=== PATIENT | female | born 1955 | race Caucasian/White ===

== ENCOUNTER 2020-04-22 19:20 | Emergency (ER) | payer OTHER ==
[~2020-04-22 19:20] MED LIST: AMBIEN5 MG PO; AZTREONAM1 GM IV; CENTURY ULTIMA1 EAC2 PO; CERTAGEN1 EACH PO; EUTHYROX137 MCG PO; FERROUS SULFAT325 M2 PO; HABITROL21 MG TOP; HEPARIN 3010 UNIT/1 IV; K-DUR20 MEQ PO; LAXATIVE OF CHOICE; MERREM1 GM IV; METRONIDAZOLE500 MG PO; MICRO-K10 MEQ PO; MIRALAX17 GM PO; MUCINEX600 MG PO; ONDANSETRON ODT4 MG PO; OS-CAL+D500 MG PO; OXYCODONE-ACET1 EAC1 PO; PERCOCET 5-3251 EACH PO; PRILOSEC20 MG PO; SYMBICORT 16010.2 GM INH; SYNTHROID150 MCG PO; ULTRAM50 MG PO; VANCO 1.51.5 GM/500 IV; VENTOLIN HFA IN18 GM INH; VOLTAREN **OUT75 MG PO; XANAX0.5 MG PO; XARELTO10 MG PO; [UNRECOGNIZED DRUG - REMARK] XX; [UNRECOGNIZED DRUG - REMARK] XX; [UNRECOGNIZED DRUG - SUPPLY] NEB; [UNRECOGNIZED DRUG - SUPPLY] PO
[2020-04-22 20:39] LABS: EOSINOPHIL 10.4 % (0-5); HCT 33.3 % (37.0-47.0); HGB 10.3 g/dl (12.5-16.0); LYMPHOCYTE 17.8 % (15-48); MCH 28.9 pg (25.0-31.0); MCHC 30.9 g/dL (32.0-36.0); MCV 93.5 fL (78.0-100.0); MONOCYTE 12.9 % (0-12); MPV 9.4 fL (6.0-9.5); NEUTROPHIL 56.4 % (41-80); NRBC 0; PLT 370 K/uL (150-400); RBC 3.56 M/uL (4.20-5.40); RDW 17.8 % (11.5-14.0); WBC 5.5 K/uL (4.0-10.5)
[2020-04-22 20:52] LABS: BILIRUBIN NEGATIVE (NEGATIVE); BLOOD NEGATIVE Ery/uL (NEGATIVE); CLARITY HAZY (CLEAR); COLOR YELLOW (YELLOW); GLUCOSE (U) NORMAL (NORMAL); LEUKOCYTES NEGATIVE Leu/uL (NEGATIVE); NITRITE NEGATIVE (NEGATIVE); PROTEIN TRACE (LOW) mg/dL (NEGATIVE); SPECIFIC GRAVITY 1.025 (1.001-1.030); UROBILINOGEN 0.2 mg/dL (0.2-1.0); pH 7.5 (5.0-9.0)
[2020-04-22 21:16] LABS: C-REACTIVE PROTEIN 0.6 mg/dL (<=0.90); MAGNESIUM 1.6 mg/dL (1.8-2.4)
[2020-04-22 21:17] LABS: LACTIC ACID 0.4 mmol/L (0.4-1.9)
[2020-04-22 21:36] LABS: URINARY RBC RARE
[2020-04-22 21:37] LABS: AMORPHOUS PHOSPHATE CRYSTALS MODERATE; BACTERIA TRACE; SQUAMOUS EPITHELIAL CELLS RARE
[2020-04-22 21:48] LABS: ALBUMIN 2.4 g/dL (3.4-5.0); BILIRUBIN - TOTAL 0.3 mg/dL (0.2-1.0); BUN/CREAT RATIO (CALC) 13.5 RATIO; CREATININE 0.89 mg/dL (0.51-0.95); GLOBULIN (CALCULATION) 3.8 g/dL; POTASSIUM 3.7 mmol/L (3.5-5.1); TOTAL PROTEIN 6.2 g/dL (6.4-8.2)
[2020-07-18] MEDS ORDERED: SEROQUEL 25MG T25 MG PO (14:58)
[2020-07-18] MEDS ORDERED: PRINIVIL20 MG PO (14:59)
[2020-07-25] MEDS ORDERED: VENTOLIN HFA18 GM INH (09:42)
[2020-07-25] MEDS ORDERED: ANORO ELLIPTA1 EACH INH (10:00)
== END 2020-04-23 02:15 | disposition other institution (70) ==
LOC: FER 19:20
PROVIDERS: Emergency Medicine
DX: G93.49 Other encephalopathy (principal); I21.4 Non-ST elevation (NSTEMI) myocardial infarction; J44.9 Chronic obstructive pulmonary disease, unspecified; Z87.19 Personal history of other diseases of the digestive system; Z20.822 Contact with and (suspected) exposure to COVID-19
CPT/HCPCS: 36415; 70450; 71045; 80053; 81001; 82728; 83605; 83615; 83735; 83880; 84145; 84484; 85025; 86140; 93005; 96372; J1650; J2060; Q9967; U0002

== ENCOUNTER → 2020-07-25 | Day surgery (SDC) | payer OTHER ==
[~2020-07-25] MED LIST changes: +ANORO ELLIPTA1 EACH INH; +PRINIVIL20 MG PO; +SEROQUEL 25MG T25 MG PO; +VENTOLIN HFA18 GM INH
== END | disposition home or self-care (01) ==
LOC: FAS 09:29
DX: K57.30 Diverticulosis of large intestine without perforation or abscess without bleeding (principal); Z88.2 Allergy status to sulfonamides; Z88.0 Allergy status to penicillin; Z88.1 Allergy status to other antibiotic agents
CPT/HCPCS: J2250; J2704; J7120

== ENCOUNTER 2021-04-09 19:28 | Emergency (ER) | payer OTHER ==
[2021-04-09 20:31] LABS: BUN/CREAT RATIO (CALC) 12.2 RATIO; C-REACTIVE PROTEIN 1.4 mg/dL (<=0.90); CREATININE 1.88 mg/dL (0.51-0.95); POTASSIUM 3.5 mmol/L (3.5-5.1)
[2021-04-09 20:39] LABS: BASOPHIL 1.3 % (0-2); EOSINOPHIL 8.3 % (0-7); HCT 35.8 % (37.0-47.0); HGB 11.6 g/dl (12.5-16.0); LYMPHOCYTE 21.2 % (15-48); MCH 31.4 pg (25.0-31.0); MCHC 32.4 g/dL (32.0-36.0); MONOCYTE 7.8 % (0-12); MPV 8.8 fL (6.0-9.5); NEUTROPHIL 60.9 % (41-80); NRBC 0; PLT 354 K/uL (150-400); RBC 3.69 M/uL (4.20-5.40); RDW 13.5 % (11.5-14.0); WBC 6.4 K/uL (4.0-10.5)
== END 2021-04-09 21:34 | disposition home or self-care (01) ==
LOC: FER 19:28
PROVIDERS: Emergency Medicine Emergency Medical Services
DX: K94.01 Colostomy hemorrhage (principal); N17.9 Acute kidney failure, unspecified; I10 Essential (primary) hypertension; F17.210 Nicotine dependence, cigarettes, uncomplicated; Z88.0 Allergy status to penicillin; Z88.1 Allergy status to other antibiotic agents; Z79.02 Long term (current) use of antithrombotics/antiplatelets
CPT/HCPCS: 36415; 80048; 85025; 86140; 99283; J7030

== ENCOUNTER 2021-06-21 18:57 | Emergency (ER) | payer MEDICARE, OTHER ==
[2021-06-21 19:33] LABS: BASOPHIL 1.1 % (0-2); EOSINOPHIL 6.4 % (0-7); HCT 32.1 % (37.0-47.0); LYMPHOCYTE 12.9 % (15-48); MCH 29.2 pg (25.0-31.0); MCHC 31.2 g/dL (32.0-36.0); MCV 93.6 fL (78.0-100.0); MONOCYTE 8.3 % (0-12); MPV 9.2 fL (6.0-9.5); NEUTROPHIL 70.8 % (41-80); NRBC 0; PLT 365 K/uL (150-400); RBC 3.43 M/uL (4.20-5.40); RDW 15.3 % (11.5-14.0); WBC 6.6 K/uL (4.0-10.5)
[2021-06-21 19:51] LABS: ALBUMIN 2.6 g/dL (3.4-5.0); BILIRUBIN - TOTAL 0.1 mg/dL (0.2-1.0); BUN/CREAT RATIO (CALC) 14.7 RATIO; CREATININE 1.02 mg/dL (0.51-0.95); POTASSIUM 3.9 mmol/L (3.5-5.1); TOTAL PROTEIN 6.6 g/dL (6.4-8.2)
[2021-06-21] MEDS ORDERED: VENTOLIN HFA18 GM INH (20:49)
== END 2021-06-21 20:59 | disposition home or self-care (01) ==
LOC: FER 18:57
PROVIDERS: Emergency Medicine
DX: J44.1 Chronic obstructive pulmonary disease with (acute) exacerbation (principal); I10 Essential (primary) hypertension; I25.10 Atherosclerotic heart disease of native coronary artery without angina pectoris; F17.200 Nicotine dependence, unspecified, uncomplicated; Z20.822 Contact with and (suspected) exposure to COVID-19; Z88.0 Allergy status to penicillin; Z88.1 Allergy status to other antibiotic agents; Z88.2 Allergy status to sulfonamides
CPT/HCPCS: 36415; 71045; 80053; 83880; 84145; 84484; 85025; 85379; 93005; 94640; 94664; J2930; U0002